=== PATIENT | female | born 1995 | race Caucasian/White ===

== ENCOUNTER 2024-02-28 23:11 | Emergency (ER) | payer MEDICAID, OTHER ==
[~2024-02-28] VITALS: Ht 157.5 cm; Wt 61.2 kg
[2024-02-29 01:22] VITALS: BP 108/70; TEMP 98.1; O2SAT 100
[2024-02-29] MEDS ORDERED: QUETIAPINE FUMARATE 100 MG TABLET ONE (01:53)
[2024-02-29] MEDS ORDERED: DIAZEPAM 5 MG TABLET ONE (01:53)
[2024-02-29] MEDS: QUETIAPINE FUMARATE 100 MG TABLET PO SCH (01:57)
[2024-02-29] MEDS: DIAZEPAM 5 MG TABLET PO ONE (01:57)
== END 2024-02-29 02:08 | disposition home or self-care (01) ==
LOC: ER 23:16
DX: F32.A Depression, unspecified (principal); F41.9 Anxiety disorder, unspecified; F42.9 Obsessive-compulsive disorder, unspecified; F84.0 Autistic disorder; M19.90 Unspecified osteoarthritis, unspecified site; M41.9 Scoliosis, unspecified; Z76.0 Encounter for issue of repeat prescription